=== PATIENT | male | born 1950 | race Caucasian/White ===

== ENCOUNTER 2018-05-15 08:36 | Outpatient (CLI) | END 2018-05-15 08:37 | disposition home or self-care (01) | LOC: NONPT 08:36 | PROVIDERS: ATTEND Family Medicine | DX: R30.0 Dysuria (principal) | CPT/HCPCS: 81001; 87086; 87186 ==

== ENCOUNTER 2018-06-01 11:37 | Outpatient (CLI) | payer OTHER | END 2018-06-01 11:38 | disposition home or self-care (01) | LOC: NONPT 11:37 | PROVIDERS: ATTEND Family Medicine | DX: R05 Cough (principal) | CPT/HCPCS: 87502 ==

== ENCOUNTER 2018-12-14 13:04 | Outpatient (CLI) | END 2018-12-14 13:05 | disposition home or self-care (01) | LOC: NONPT 13:04 | PROVIDERS: ATTEND Family Medicine | DX: E11.9 Type 2 diabetes mellitus without complications (principal); E78.5 Hyperlipidemia, unspecified; D50.9 Iron deficiency anemia, unspecified | CPT/HCPCS: 80053; 80061; 83036; 85025 ==